=== PATIENT | male | born 1965 | race Caucasian/White ===

== ENCOUNTER 2021-08-30 17:44 | Day surgery (SDC) | payer OTHER ==
--- OUTSIDE RECORDS SUMMARY | 2021-08-30 18:00 | XMS REPORT | Continuity of Care Document ---
:1965 Author Organization [facility] t Address [address] [place] [address] Dr. Davis [address] [place] [id number] Care Team Providers Name Role Phone TONY MATOS Attending Clinician Unavailable Payers Payer Name Policy Type Policy Number Effective Date Expiration Date S matthew [employer] 2 [id number] 2021 00:00:00 Problems This patient has no known problems. Allergies, Adverse Reactions, Alerts This patient has no known allergies or adverse reactions. Medications This patient has no known medications. Procedures This patient has no known procedures. Encounters Start End Encounter Admission Attending Care Care Encounter Source Date/Time Date/Time Type Type Clinicians Facility Department ID 2021-08-30 2021-08-30 Outpatient DENILSON MATOS [id number] [address] 15:30:00 15:30:00 EUGENIO can Results This patient has no known results.
[2021-08-30] MEDS ORDERED: GLUCAGON 1 MG/VIAL ONE (18:17)
--- NOTE | 2021-08-30 19:05 | RAD REPORT ---
EXAM DESCRIPTION: CT - Thorax Tessa Ortiz - 08/30/2021 6:49 pm CLINICAL HISTORY: She will foreign body possible;Pain COMPARISON: No comparisons FINDINGS: Chest Wall: No suspicious thyroid nodules or pathologic lymphadenopathy. Lungs: No acute abnormality. Pleura: No significant effusions or pneumothorax. Mediastinum/chayo: No pathologic lymphadenopathy. Distended esophagus. There is a food bolus impacted at the GE junction. It measures 2.4 cm x 1.7 cm. Air fluid level in the mid esophagus. Pulmonary arteries/Aorta: Limited evaluation without contrast. No aortic aneurysm. Heart: No significant pericardial effusion. Normal heart size. Upper abdomen: No acute abnormality. Too small to characterize liver lesions which are likely benign. Bones: No acute abnormality. All CT scans are performed using dose optimization technique as appropriate and may include automated exposure control or mA/KV adjustment according to patient size. IMPRESSION: Food bolus impacted at the gastroesophageal junction as noted above.
--- NOTE | 2021-08-30 19:56 | ER ---
Nurse's Notes [facility] Name: Bennie Bloom Jr Age: 56 yrs Sex: Male : 1965 Arrival Date: 08/30/2021 Time: 17:48 Bed 19 Private MD: Diagnosis: Esophageal foreign body/food bolus Presentation: 08/30 18:02 Chief complaint: Patient states: Ate BBQ at 1130 and feels like food is stuck in jl7 epigastric area, vomited some stuff up but still feels like some is still there. Coronavirus screen: At this time, the client does not indicate any symptoms associated with coronavirus-19. Ebola Screen: No symptoms or risks identified at this time. Initial Sepsis Screen: Does the patient meet any 2 criteria? No. Patient's initial sepsis screen is negative. Does the patient have a suspected source of infection? No. Patient's initial sepsis screen is negative. Risk Assessment: Do you want to hurt yourself or someone else? Patient reports no desire to harm self or others. Onset of symptoms was August 30, 2021. Care prior to arrival: None. 18:02 Method Of Arrival: Ambulatory [facility] 18:02 Acuity: BENNETT 3 jl7 Triage Assessment: 18:04 General: Appears in no apparent distress. uncomfortable, Behavior is calm, cooperative, jl7 appropriate for age. Pain: Complains of pain in epigastric area Pain currently is 4 out of 10 on a pain scale. Neuro: Level of Consciousness is awake, alert, obeys commands, Oriented to person, place, time, situation. Cardiovascular: Patient's skin is warm and dry. Respiratory: Airway is patent Respiratory effort is even, unlabored, Respiratory pattern is regular, symmetrical. GI:. Derm: Skin is pink, warm \T\ dry. Historical: - Allergies: 18:04 No Known Allergies; jl7 - Home Meds: 18:04 None [Active]; jl7 - PMHx: 18:04 None; jl7 - PSHx: 18:04 None; jl7 - Immunization history:: Client reports receiving the 2nd dose of the Covid vaccine, Moderna. - Social history:: Smoking status: Patient denies any tobacco usage or history of. Screenin:30 Abuse screen: Denies threats or abuse. Denies injuries from another. sl2 22:07 Nutritional screening: No deficits noted. Tuberculosis screening: No symptoms or risk as6 factors identified. Fall Risk None identified. Assessment: 20:00 General: Appears in no apparent distress. uncomfortable, Behavior is calm, cooperative. as6 Pain: Complains of pain in xiphoid area and mid-sternal area. Neuro: Level of Consciousness is awake, alert, obeys commands, Oriented to person, place, time, situation. Cardiovascular: Capillary refill < 3 seconds Patient's skin is warm and dry. Respiratory: Airway is patent Trachea midline Respiratory effort is even, unlabored, Respiratory pattern is regular, symmetrical. GI: Reports nausea, vomiting. Derm: Skin is intact, is healthy with good turgor. 20:20 Reassessment: pt take to OR. as6 21:50 Reassessment: Spoke with OR nurse, Sadnra, reports patient will be discharged from day lp1 surgery. Vital Signs: 18:02 BP 140 / 98; Pulse 99; Resp 17; Temp 97.6; Pulse Ox 100% ; Weight 84.82 kg; Height 6 jl7 ft. 1 in. (185.42 cm); Pain 4/10; 18:30 BP 142 / 89; Pulse 20; Resp 18; Pulse Ox 100% ; sl2 20:11 BP 137 / 96; Pulse 84; Resp 22 S; Pulse Ox 100% on R/A; as6 18:02 Body Mass Index 24.67 (84.82 kg, 185.42 cm) jl7 ED Course: 17:48 Patient arrived in ED. am2 18:04 Triage completed. jl7 18:04 Arm band placed on right wrist. Patient placed in waiting room, Patient notified of jl7 wait time. 18:27 Yousif David MD is Attending Physician. kdr 18:30 Patient has correct armband on for positive identification. Bed in low position. Call sl2 light in reach. 18:30 No provider procedures requiring assistance completed. Inserted saline lock: 20 gauge sl2 in left antecubital area, using aseptic technique. 18:34 Avril Chris, EMANUEL is Primary Nurse. sl2 18:49 CT Chest Wo Con In Process Unspecified. EDMS 19:55 Bertin Shafer MD is Hospitalizing Provider. kdr Administered Medications: 18:34 Drug: GlucaGen (glucagon) 1 mg Route: IVP; Site: left antecubital; sl2 20:28 Follow up: Response: No adverse reaction as6 Outcome: 19:55 Decision to Hospitalize by Provider. kdr 22:11 Patient left the ED. lp1 Signatures: Dispatcher [employer] EDMS Yousif David MD MD kdr Scarlett Currie RN RN lp1 Singh Lee RN RN jl7 Mariela Cordova Sophia, RN RN sl2 Simon Olea RN RN as6
--- NOTE | 2021-08-30 19:56 | EDPHYS ---
Physician Documentation [facility] Name: Bennie Bloom Jr Age: 56 yrs Sex: Male : 1965 Arrival Date: 08/30/2021 Time: 17:48 Bed 19 Private MD: ED Physician Yousif David HPI: 08/30 18:31 This 56 yrs old Male presents to ER via Ambulatory with complaints of Foreign Body In kdr Throat - food stuck. 18:31 The patient presents with dysphagia, of both solids and liquids. The patient describes kdr throat pain as constant. Onset: The symptoms/episode began/occurred suddenly, this morning, at 1130. Severity of symptoms: At their worst the symptoms were mild, moderate, just prior to arrival. Modifying factors: The symptoms are alleviated by nothing, the symptoms are aggravated by fluids, foods, swallowing, Patient's oral intake status: unable to tolerate fluids, unable to tolerate foods. Associated signs and symptoms: The patient has no apparent associated signs or symptoms. Patient never had a lodged foreign body in his esophagus though he has had episodes where he has had difficulty passing solids. The patient has not recently seen a physician. Patient was eating barbecue at about 1130 this morning when he noted that he was unable to pass the food that he was eating. Since then he has been spitting up his own saliva and unable to manage his own secretions.. Historical: - Allergies: 18:04 No Known Allergies; jl7 - Home Meds: 18:04 None [Active]; jl7 - PMHx: 18:04 None; jl7 - PSHx: 18:04 None; jl7 - Immunization history:: Client reports receiving the 2nd dose of the Covid vaccine, Moderna. - Social history:: Smoking status: Patient denies any tobacco usage or history of. ROS: 18:31 Constitutional: Negative for fever, chills, and weight loss, Eyes: Negative for injury, kdr pain, redness, and discharge, ENT: Negative for injury, pain, and discharge, Neck: Negative for injury, pain, and swelling, Cardiovascular: Negative for chest pain, palpitations, and edema, Respiratory: Negative for shortness of breath, cough, wheezing, and pleuritic chest pain, Back: Negative for injury and pain, : Negative for injury, bleeding, discharge, and swelling, MS/Extremity: Negative for injury and deformity, Skin: Negative for injury, rash, and discoloration, Neuro: Negative for headache, weakness, numbness, tingling, and seizure activity. Psych: Negative for depression, anxiety, suicide ideation, homicidal ideation, and hallucinations, Allergy/Immunology: Negative for hives, rash, and allergies, Endocrine: Negative for neck swelling, polydipsia, polyuria, polyphagia, and marked weight changes, Hematologic/Lymphatic: Negative for swollen nodes, abnormal bleeding, and unusual bruising. 18:31 Abdomen/GI: Positive for vomiting, dysphagia, Unable to pass solids or fluids.. Exam: 18:31 Constitutional: This is a well developed, well nourished patient who is awake, alert, kdr and in no acute distress. Head/Face: Normocephalic, atraumatic. Eyes: Pupils equal round and reactive to light, extra-ocular motions intact. Lids and lashes normal. Conjunctiva and sclera are non-icteric and not injected. Cornea within normal limits. Periorbital areas with no swelling, redness, or edema. Chest/axilla: Normal chest wall appearance and motion. Nontender with no deformity. No lesions are appreciated. Cardiovascular: Regular rate and rhythm with a normal S1 and S2. No gallops, murmurs, or rubs. Normal PMI, no JVD. No pulse deficits. Respiratory: Lungs have equal breath sounds bilaterally, clear to auscultation and percussion. No rales, rhonchi or wheezes noted. No increased work of breathing, no retractions or nasal flaring. Abdomen/GI: Soft, non-tender, with normal bowel sounds. No distension or tympany. No guarding or rebound. No evidence of tenderness throughout. Back: No spinal tenderness. No costovertebral tenderness. Full range of motion. Skin: Warm, dry with normal turgor. Normal color with no rashes, no lesions, and no evidence of cellulitis. Vital Signs: 18:02 BP 140 / 98; Pulse 99; Resp 17; Temp 97.6; Pulse Ox 100% ; Weight 84.82 kg; Height 6 jl7 ft. 1 in. (185.42 cm); Pain 4/10; 18:30 BP 142 / 89; Pulse 20; Resp 18; Pulse Ox 100% ; sl2 20:11 BP 137 / 96; Pulse 84; Resp 22 S; Pulse Ox 100% on R/A; as6 18:02 Body Mass Index 24.67 (84.82 kg, 185.42 cm) 7 MDM: 18:31 ED course: The patient had attempted to dislodge the foreign body/food bolus this kdr morning shortly after became lodged. He at that time had used water. He was not successful. Subsequently we attempted a Coke swallow here also without success. Patient was then given high IV glucagon and we are currently pending the results of that action.. 19:55 Patient medically screened. kdr 19:57 Data reviewed: vital signs, nurses notes, lab test result(s), radiologic studies. kdr Counseling: I had a detailed discussion with the patient and/or guardian regarding: the historical points, exam findings, and any diagnostic results supporting the discharge/admit diagnosis, lab results, radiology results, the need for further work-up and treatment in the hospital. ED course: Patient was stable in the ED. We attempted to dislodge the foreign body without success. This involves both glucagon and coke. 12 19:56 Order name: Basic Metabolic Panel [facility] 08/30 19:56 Order name: CBC with Diff [facility] 08/30 19:56 Order name: LFT's [facility] 08/30 19:56 Order name: Magnesium [facility] 08/30 19:56 Order name: NT PRO-BNP [facility] / 19:56 Order name: PT-INR [facility] 08/30 18:22 Order name: IV Saline Lock; Complete Time: 18:34 jl7 08/30 18:29 Order name: CT Chest Wo Con [facility] 08/30 19:56 Order name: Troponin (emerg Dept Use Only) [facility] 08/30 19:56 Order name: EKG; Complete Time: 19:58 [facility] 08/30 19:57 Order name: Basic Metabolic Panel [facility] 08/30 20:02 Order name: COVID-19 SARS RT PCR (Document "Date of Onset" if Symptomatic) lp1 08/30 19:56 Order name: Cardiac monitoring; Complete Time: 20:07 [facility] 08/30 19:56 Order name: EKG - Nurse/Tech; Complete Time: 20:07 [facility] 08/30 19:56 Order name: Labs collected and sent; Complete Time: 20:07 kdr 08/30 19:56 Order name: O2 Per Protocol; Complete Time: 20:07 kdr 08/30 19:56 Order name: O2 Sat Monitoring; Complete Time: 20:07 kdr Administered Medications: 18:34 Drug: GlucaGen (glucagon) 1 mg Route: IVP; Site: left antecubital; sl2 20:28 Follow up: Response: No adverse reaction as6 Disposition Summary: 08/30/21 19:55 Hospitalization Ordered Hospitalization Status: Observation kdr Provider: Bertin Shafer Location: Operating Room kdr Condition: Fair kdr Problem: new kdr Symptoms: are unchanged kdr Bed/Room Type: Standard kdr Room Assignment: kdr Diagnosis - Esophageal foreign body/food bolus kdr Forms: - Medication Reconciliation Form kdr - SBAR form kdr Signatures: Dispatcher [employer] EDYousif Rivers MD MD kdr Singh Lee RN RN jl7 Avril Chris RN RN sl2 Simon Olea RN as6 Corrections: (The following items were deleted from the chart) 20:31 19:58 Chest Single View+RAD.RAD.BRZ ordered. EDMS JONATHAN
[2021-08-30] MEDS ORDERED: propofoL 200 MG/20 ML VIAL IV ONE (20:15)
[2021-08-30] MEDS ORDERED: LIDOCAINE 1% MPF 5 ML VIAL ONE (20:15)
[2021-08-30 20:22] LABS: Absolute Lymphocytes (CBC) 1.2 K/uL (0.7-4.9); Basophils % 0.3 % (0-1.3); Hematocrit 43.7 % (39.6-49.0); Lymphocytes % 8.9 % (15.3-44.8); MPV 7.4 fL (7.6-11.3)
[2021-08-30 20:25] LABS: Protime INR 1.04
[2021-08-30] MEDS: Ringers Lactate 1,000 ML IV ONE ×2 (20:29→20:30)
[2021-08-30] MEDS ORDERED: MIDAZOLAM HCL 2 MG/2 ML INJ ONE (20:42)
[2021-08-30 20:50] LABS: ALT/SGPT 31 U/L (12-78); AST/SGOT 19 U/L (15-37); Albumin 3.7 g/dL (3.4-5.0); Alkaline Phosphatase 57 U/L (45-117); BUN Blood Urea Nitrogen 15 mg/dL (7-18); Bicarbonate 25 mmol/L (21-32); Bilirubin Direct 0.1 mg/dL (0-0.2); Bilirubin Total 0.5 mg/dL (0.2-1.0); Glucose Level 103 mg/dL (74-106); Magnesium 2.4 mg/dL (1.8-2.4); NT PRO-BNP 14 pg/mL (<125); Protein, Total 7.6 g/dL (6.4-8.2); Sodium Level 142 mmol/L (136-145); Troponin (Emerg Dept Use Only) < 0.02 ng/mL (0.0-0.045)
--- NOTE | 2021-08-30 21:39 | ENDO RPT ---
[address], [address] EGD PROCEDURE REPORT EXAM DATE: 08/30/2021 PATIENT NAME: Bennie Bloom MR#: [id number] BIRTHDATE: 1965 ATTENDING: Bertin Shafer Dr STATUS: outpatient GRANTS ANALYST: Александр Be CST and Liseth Flores RN INDICATIONS: The patient is a 56 yr old Male here for an EGD due to dysphagia and foreign body PROCEDURE PERFORMED: EGD with biopsy MEDICATIONS: Per Anesthesia. TOPICAL ANESTHETIC: none CONSENT: The patient understands the risks and benefits of the procedure and understands that these risks include, but are not limited to: sedation, allergic reaction, infection, perforation and/or bleeding. Alternative means of evaluation and treatment include, among others: physical exam, x-rays, and/or surgical intervention. The patient elects to proceed with this endoscopic procedure. DESCRIPTION OF PROCEDURE: During intra-op preparation period all mechanical medical equipment was checked for proper function. Hand hygiene and appropriate measures for infection prevention was taken. Procedure, possible complications, and alternatives including but not limited to the possibility of bleeding, perforation, tear, infection, sepsis, need for surgery, need for blood transfusion, and anesthesia related complications were explained to the patient. After the risks, benefits and alternatives of the procedure were thoroughly explained, Informed consent was verified, confirmed and timeout was successfully executed by the treatment team. The patient was placed in the left lateral position. The patient was anesthetized with topical anesthesia. Through the anesthetized oropharyngeal area, the scope was passed without any difficulty. The EG-[id number] ([id number]) and Pentax EG-[id number] ([id number]) endoscope was introduced through the mouth and advanced to the second portion of the duodenum. Retroflexed views revealed a small hiatal hernia. The gastroscope was then slowly withdrawn and removed. LA Class D esophagitis was found in the lower esophagus. A stricture was found in the lower esophagus. A small hiatal hernia was found A meat bolus was found in the body of the stomach. Duodenitis was found in the bulb of the duodenum. Multiple (4) small 2-3 mm clean-based ulcers were found in the bulb of the duodenum. Multiple biopsies were obtained and sent to pathology. ADVERSE EVENTS: There were no complications. IMPRESSIONS: 1. LA Class D esophagitis in the lower esophagus 2. 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 Small hiatal hernia 5. Duodenitis n the bulb of the duodenum 6. Multiple (4) small 2-3 mm clean-based ulcers in the bulb of the duodenum RECOMMENDATIONS: 1. await biopsy results 2. acid suppression therapy REPEAT EXAM: Return in 3 week(s) for EGD with dilatations. Bertin Shafer Dr eSigned: Bertin Shafer Dr 08/30/2021 9:39 PM cc: CPT CODES: ICD9 CODES: PATIENT NAME: Bennie Bloom MR#: [id number]
[2021-08-30 22:06] VITALS: O2SAT 100
[2021-08-30 22:17] VITALS: BP 122/79; TEMP 97.4
--- NOTE | 2021-09-01 12:38 | EKG ---
Test Date: 2021-08-30 Test Time: 20:07:24 Specialized Language Instructor: IZZYT MEASUREMENT RESULTS: Intervals: Rate: 92 HI: 142 QRSD: 86 QT: 358 QTc: 442 [place]: P: 65 HI: 142 QRS: 63 T: 29 INTERPRETIVE STATEMENTS: Normal sinus rhythm with sinus arrhythmia Nonspecific ST abnormality Abnormal ECG No previous ECG available for comparison Electronically Signed On 09-01-21 12:35:46 HAND LAUNDERER by Paul Monk
== END 2021-08-30 22:30 | disposition home or self-care (01) ==
LOC: ER 17:44 → UNDOADMOB 21:58 → ERHOLD 21:58 → DS 22:13
PROVIDERS: ATTEND Internal Medicine Gastroenterology
PROC: 0DC68ZZ Extirpation of Matter from Stomach, Via Natural or Artificial Opening Endoscopic (ICD-10-PCS; 2021-08-30)
PROC: 0DB68ZX Excision of Stomach, Via Natural or Artificial Opening Endoscopic, Diagnostic (ICD-10-PCS; principal; 2021-08-30 20:00)
DX: T18.108A Unspecified foreign body in esophagus causing other injury, initial encounter (principal); R13.10 Dysphagia, unspecified; K29.50 Unspecified chronic gastritis without bleeding; K29.80 Duodenitis without bleeding; K26.9 Duodenal ulcer, unspecified as acute or chronic, without hemorrhage or perforation; K44.9 Diaphragmatic hernia without obstruction or gangrene; Z20.822 Contact with and (suspected) exposure to COVID-19
CPT/HCPCS: 93005; 85025; 80048; 36415; 83735; 88312; 85610; 80076; 88305; 84484; 83880; 71250; 96374; 99283; 43239; 43247; U0003; J2704; J1610; J2250; J7120